=== PATIENT | female | born 1965 | race Caucasian/White ===

== ENCOUNTER 2021-05-21 19:32 | Emergency (ER) | payer BC, SELFPAY ==
[2021-05-21 19:41] VITALS: BP 138/78; PULSE 66; RESP 20; TEMP 36.7; O2SAT 100
[2021-05-21 21:24] VITALS: BP 121/84; PULSE 68; RESP 18; TEMP 36.9; O2SAT 99
[2021-05-21] MEDS: methylPREDNISolone SOD SUCC 125 MG VIAL IM (23:06)
[2021-05-21] MEDS: KETOROLAC 30 MG/ML VIAL (*BKC) IM (23:06)
[2021-05-21] MEDS: HYDROcodone/acetaminophen (*CRX) 5-325 MG TABLET 1 TAB PO (23:06)
[2021-05-21] MEDS: ORPHENADRINE CITRATE 100 MG TABLET.ER PO (23:06)
--- NOTE | 2021-05-22 00:13 | ED.GENADULT ---
HPI - General Adult General Chief complaint: Back Pain/Injury Stated complaint: Lower back pain Time Seen by Provider: 05/21/21 22:40 History of Present Illness HPI narrative: Patient 56-year-old female presents the emergency room with chief complaint of low back pain. Patient reports she has been seeing her chiropractor for the last several days and was started to feel better but then started having pain after she turned and felt pain pulling in her low back patient states it radiates to the upper left thigh reports no numbness no tingling no bowel or bladder dysfunction no foot drop. Related Data Home Medications Medication Instructions Recorded Confirmed aspirin 81 mg tablet,delayed 81 mg PO DAILY 06/13/19 03/02/21 release ezetimibe 10 mg tablet 10 mg PO DAILY 06/13/19 03/02/21 magnesium oxide 400 mg PO DAILY 06/13/19 03/02/21 rosuvastatin 10 mg tablet 10 mg PO DAILY 06/13/19 03/02/21 cholecalciferol (vitamin D3) 125 5,000 unit PO DAILY 10/21/19 03/02/21 mcg (5,000 unit) tablet Allergies Allergy/AdvReac Type Severity Reaction Status Date / Time erythromycin base Allergy Unknown Nausea Verified 11/19/18 08:03 Penicillins Allergy Unknown Urticaria Verified 11/19/18 08:03 sulfamethizole Allergy Unknown Nausea Verified 11/19/18 08:03 tetracycline Allergy Unknown Nausea Verified 11/19/18 08:03 trimethoprim Allergy Unknown Nausea Verified 11/19/18 08:03 Review of Systems Review of Systems: A 10 system review of systems was completed on the patient and is negative except for what is stated in the HPI. Nursing and ancillary documentation was reviewed. FOR[facility]LY [facility] Past Medical History Medical History Benign colon polyp BMI 25.0-25.9,adult BMI 26.0-26.9,adult Chronic anxiety Chronic nonallergic rhinitis Folliculitis of nose Irritable bowel syndrome with diarrhea Lateral epicondylitis of left elbow Medial epicondylitis, left elbow Migraine without aura and without status migrainosus, not intractable Tension headache, chronic UTI (urinary tract infection) Vitamin B12 deficiency anemia Family History Family History Mother Patient's mother is in good health Father Patient's father is in good health Social History Social History Smoking status: Never smoker Alcohol intake: never Substance use: never Substance use type: does not use Exam Narrative: GENERAL: Well-appearing, well-nourished, and in no acute distress. HEAD: Normocephalic, atraumatic. EYES: PERRLA and EOMI. ENT: Nares clear, no rhinorrhea or epistaxis. Mucous membranes moist. NECK: Supple. CHEST: Clear to auscultation. No respiratory distress. HEART: Regular rate and rhythm. No murmur heard. Normal peripheral pulses. ABDOMEN: Soft, nontender, nondistended, normal active bowel sounds. EXTREMITIES: Normal range of motion. No edema. SKIN: Warm, dry, no rash. NEURO: No focal deficits. Alert and oriented x3. PSYCH: Normal mood and affect. Course Vital Signs Vital signs: Vital Signs Temperature 36.7 C 05/21/21 19:41 Pulse Rate 66 05/21/21 19:41 Respiratory Rate 20 05/21/21 19:41 Blood Pressure 138/78 05/21/21 19:41 Pulse Oximetry 100 05/21/21 19:41 Temperature 36.9 C 05/21/21 21:24 Pulse Rate 68 05/21/21 21:24 Respiratory Rate 18 05/21/21 21:24 Blood Pressure 121/84 05/21/21 21:24 Pulse Oximetry 99 05/21/21 21:24 Medical Decision Making Vital Signs Vital Signs: Vital Signs Temperature 36.7 C 05/21/21 19:41 Pulse Rate 66 05/21/21 19:41 Respiratory Rate 20 05/21/21 19:41 Blood Pressure 138/78 05/21/21 19:41 Pulse Oximetry 100 05/21/21 19:41 Temperature 36.9 C 05/21/21 21:24 Pulse Rate 68 05/21/21 21:24 Respiratory Rate 18 05/21/21 21:24 Blood Pressure 121/84 05/21/21 21:24 P
[2021-05-22 00:29] VITALS: BP 123/86; PULSE 68; RESP 20; TEMP 37; O2SAT 100
== END 2021-05-22 00:27 | disposition home or self-care (01) ==
PROVIDERS: Emergency Provider Emergency Medicine; PCP Family Medicine
DX: M54.50 Low back pain, unspecified (principal); Z79.82 Long term (current) use of aspirin
CPT/HCPCS: 96372; 99284; A9270; J1885; J2930

== ENCOUNTER 2023-10-24 08:41 | Outpatient (CLI) | payer OTHER, SELFPAY ==
--- NOTE | ~2023-10-24 | US_ITS ---
EXAMINATION: US thyroid DATE: 10/24/2023 09:01 INDICATION: Multinodular goiter. TECHNIQUE: Multiple ultrasound images of the thyroid were obtained. COMPARISON: None. FINDINGS: The right thyroid lobe measures 5.4 x 1.6 x 1.8 cm. The left thyroid lobe measures 4.8 x 1.2 x 1.6 c m. In the right thyroid lobe, there is an 11 mm solid, hypoechoic, wider than tall nodule with ill-d efined margin without echogenic foci (TI-RADS TR4). IMPRESSION: 1. Right thyroid nodule. Thyroid ultrasound is recommended in one year. Reviewed, dictated and finalized at location A.
== END 2023-10-24 08:42 ==
PROVIDERS: PCP Family Medicine; Visit Provider Internal Medicine
DX: E04.1 Nontoxic single thyroid nodule (principal)
CPT/HCPCS: 76536

== ENCOUNTER 2023-12-11 12:33 | Outpatient (CLI) | payer OTHER, SELFPAY ==
--- NOTE | ~2023-12-11 | US_ITS ---
EXAMINATION: US FNA w image guidance DATE: 12/11/2023 13:41 INDICATION: Right thyroid nodule. TECHNIQUE: The procedure and its benefits and risks were discussed with the patient. Risks specifically discusse d included bleeding. The patient verbalized understanding of the risks and agreed to proceed. The nec k was prepped and draped in the usual sterile manner. 1% lidocaine was used for local anesthesia. 1 0 passes were made with a 25G needle into the lesion under ultrasound guidance. There were no immedi ate complications. FINDINGS: Grayscale ultrasound images demonstrate needles advanced into 1.1 cm nodule in right thyroid lobe for biopsy. IMPRESSION: 1. Ultrasound-guided fine needle aspiration of a right thyroid nodule. Reviewed, dictated and finalized at location A.
== END 2023-12-11 12:34 | disposition home or self-care (01) ==
LOC: ANHIMG 12:36
PROVIDERS: PCP Family Medicine; Visit Provider Internal Medicine
DX: E04.1 Nontoxic single thyroid nodule (principal)
CPT/HCPCS: 10005; 88172; 88173; 88305

== ENCOUNTER 2024-05-16 12:37 | Outpatient (CLI) | payer OTHER, SELFPAY ==
--- NOTE | ~2024-05-16 | US_ITS ---
EXAMINATION: US FNA w image guidance DATE: 05/16/2024 13:35 INDICATION: 1.1 cm TI-RADS 4 right thyroid nodule with prior nondiagnostic biopsy TECHNIQUE: A time-out was performed to verify the patient's name, date of , and procedure to be performed . The procedure and its benefits and risks were discussed with the patient. Risks specifically discus sed included bleeding and infection. The patient understood the risks and agreed to proceed. The neck was prepped and draped in the usual sterile manner. 5 mL 1% lidocaine was used for local anesthesia . 8 passes were made with a 25G needle into the lesion. Appropriate needle location was documented with continuous sonographic guidance. A sterile bandage was applied. There were no immediate compli cations. FINDINGS: Grayscale ultrasound images demonstrate biopsy needles advanced into the previously noted and biopsie d hypoechoic solid TI-RADS 4 right thyroid nodule which measures up to 9 mm in maximal diameter in th e current study. IMPRESSION: 1. Successful ultrasound-guided fine needle aspiration of a 9 mm TI-RADS 4 right thyroid nodule. Reviewed, dictated and finalized at location A. IMPRESSION: 1. Successful ultrasound-guided fine needle aspiration of a 9 mm TI-RADS 4 rig ht thyroid nodule.
== END 2024-05-16 12:38 | disposition home or self-care (01) ==
PROVIDERS: PCP Family Medicine; Visit Provider Internal Medicine
DX: E04.1 Nontoxic single thyroid nodule (principal)
CPT/HCPCS: 88172; 88173; 88177; 88305

== ENCOUNTER 2025-04-30 08:02 | Outpatient (CLI) | payer OTHER, SELFPAY ==
--- OUTSIDE RECORDS SUMMARY | 2025-04-30 08:24 | XMS_ITS | Clinical Summary ---
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 This disclosure is being madepursuant to the Care Everywhere program and may not contain all information available regarding this patient. Last updated 18.[facility] Allergies Active Allergy Reactions Criticality Noted Date Comments Batroxobin 07/14/2017 Erythromycin 07/14/2017 Penicillins 07/14/2017 Tetracycline 07/14/2017 Immunizations Immunization Administration Dates Next Due INFLUENZA VACCINE, QUADR. (F LUZONE; FLULAVAL; FLUARIX; AFLURIA QUADRIVALENT; 6MO+), 0.5 ML (IIV4) 07/14/2017 iNFLUENZA VACCINE, RECOM-MALIK, QUADR. 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 Gender Identity Not on file Sexual Orientation Not on file Plan of Treatment Health Maintenance Due Date Last Done Comments COLOGUARD (AGES 45-75) - COL ON CA SCREENING 1965 COLON MONITORING 1965 COLONOSCOPY - COLON CA SCREENING 1965 CT COLONOGRAPHY - COLON CA SCREENING 1965 Colorectal Cancer Screening 1965 FIT - COLON CA SCREENING 1965 FLEX SIG - COLON CA SCREENING 1965 LIPID TESTING 1965 MAMMOGRAM 1965 HIV SCREENING 1980 HEPATITIS C SCREENING 03/08/1983 DTAP/TDAP/TD VACCINES (1 - Tdap) 1984 PNEUMOCOCCAL VACCINE 50+ (1 of 1 - PCV) 2015 ZOSTER VACCINE (1 of 2) 2015 DEPRESSION SCREENING 08/13/2024 COVID-19 VACCINE (1 - 2023-2 5 season) 2025 INFLUENZA VACCINE (#1) 2025 8, 07/14/2017 Respiratory Syncytial Virus (RSV) Vaccine Pt: or over 60 yrs (1 - 1-dose 75+ series) 2040 HEPATITIS B VACCINE Aged Out No longe r eligible based on patient's age to complete this topic HIB VACCINE Aged Out No longer eligi ble based on patient's age to complete this topic HPV VACCINE Aged Out No longer eligi ble based on patient's age to complete this topic MENINGOCOCCAL (Group B) VACCINE SHARED DECISION-MAKING Aged Out No longer eligible based on patient's age to complete this topic MENINGOCOCCAL GROUPS A/C/Y/W VACCINE Aged Out No longer eligible b ased on patient's age to complete this topic Insurance CARE Care Teams Painter Drum Relationship Specialty Start Date End Date Scott Casillas MD PCP - General Family Medicine 07/14/17
== END 2025-04-30 08:03 | disposition home or self-care (01) ==
LOC: CHSIMG 08:04
PROVIDERS: PCP Family Medicine; Visit Provider Nurse Practitioner
DX: N63.10 Unspecified lump in the right breast, unspecified quadrant (principal)
CPT/HCPCS: 99199

== ENCOUNTER 2025-06-04 08:34 | Outpatient (CLI) | payer OTHER, SELFPAY ==
--- NOTE | ~2025-06-04 | MMUS_ITS ---
EXAMINATION: MM diagnostic andrea BI w david, US breast BI complete INDICATION: 60-year old female; presents for imaging evaluation of bilateral lumps felt by primary care provider every routine breast examination. Patient cannot feel the lumps. Family history of breast cancer in sister in her 50s. COMPARISON: 04/11/2018 through 09/30/2005 TECHNIQUE: Digital breast tomosynthesis ML, CC and MLO views of the BILATERAL were obtained with computer-aided detection to assist in interpretation of the study. FINDINGS: The breasts are heterogeneously dense, which may obscure small masses. There are no suspicious masses, calcifications, architectural distortion or any other abnormality in either breast. No suspicious mammographic abnormality correlates to the radiopaque skin marker. BILATERAL BREAST ULTRASOUND FINDINGS: High-resolution ultrasound evaluation of all 4 quadrants of both breasts was completed. Right breast: At 2:00, 5 cm FN there is a 0.2 cm cyst identified. At 9:00, 8 cm FN there is a 0.4 cm cyst seen. Left breast: There is a 0.3 cm cyst seen at 2:00, 2 cm FN. Additional 0.3 cm cyst is identified at 2:00, 2 cm FN. There is a 0.4 cm cyst seen at 5:00, subareolar location. IMPRESSION: NO SUSPICIOUS MAMMOGRAPHIC OR SONOGRAPHIC FINDING IN EITHER BREAST. MULTIPLE BILATERAL CYSTS IDENTIFIED. NO FURTHER INVESTIGATION NECESSARY. RECOMMENDATION: FURTHER EVALUATION OF CLINICIAN FELT PALPABLE LUMP SHOULD BE BASED ON CLINICAL IMPRESSION. FOLLOW-UP CLINICALLY WARRANTED. BI-RADS 2, BENIGN Reviewed, dictated and finalized at location B. IMPRESSION: NO SUSPICIOUS MAMMOGRAPHIC OR SONOGRAPHIC FINDING IN EITHER BREAST. MULTIPLE BILATERAL CYSTS IDENTIFIED. NO FURTHER INVESTIGATION NECESSARY. RECOMMENDATION: FURTHER EVALUATION OF CLINICIAN FELT PALPABLE LUMP SHOULD BE BASED ON CLINICAL IMPRESSION. FOLLOW-UP CLINICALLY WARRANTED. BI-RADS 2, BENIGN
== END 2025-06-04 08:35 | disposition home or self-care (01) ==
PROVIDERS: PCP Family Medicine; Visit Provider Nurse Practitioner
DX: N60.02 Solitary cyst of left breast (principal); N60.01 Solitary cyst of right breast; Z80.3 Family history of malignant neoplasm of breast
CPT/HCPCS: 76641; 77062; 77066; G0279